=== PATIENT | female | born 1950 | race Caucasian/White ===

== ENCOUNTER 2022-11-05 19:39 | Inpatient (IN) | payer OTHER ==
[~2022-11-05] VITALS: Ht 154.9 cm; Wt 55.3 kg
[2022-11-05 19:49] VITALS: BP_SYST 163; PULSE 66; RESP 19; TEMP 97.2; O2SAT 98
[2022-11-05] MEDS ORDERED: METOCLOPRAMIDE HCL 10 MG/2 ML VIAL IM ONE (20:30)
[2022-11-05] MEDS ORDERED: METF-379 PO (22:00)
[2022-11-05] MEDS ORDERED: PRO20 PO (22:00)
[2022-11-05] MEDS ORDERED: LOSA100T4 PO (22:00)
[2022-11-05] MEDS ORDERED: LIP20 PO (22:00)
[2022-11-05] MEDS ORDERED: ATOR20TA64 PO (22:00)
[2022-11-05 22:29] LABS: BASOPHILS # (AUTO) 0.1 K/uL (0.0-0.2); BASOPHILS % (AUTO) 1.1 % (0.0-2.0); EOSINOPHILS % (AUTO) 0.5 % (0.0-4.0); HEMATOCRIT 31.2 % (36-48); HEMOGLOBIN 10.3 g/dL (12.0-16.0); LYMPHOCYTES # (AUTO) 1.6 K/uL (1.0-5.5); LYMPHOCYTES % (AUTO) 20.3 % (20.5-51.5); MEAN CORPUSCULAR HEMOGLOBIN 28 pg (27-31); MEAN CORPUSCULAR HGB CONC 33 % (32-36); MEAN CORPUSCULAR VOLUME 85 fL (79.0-98.0); MONOCYTES # (AUTO) 0.5 K/uL (0.0-1.0); MONOCYTES % (AUTO) 6.7 % (1.7-9.3); NEUTROPHILS # (AUTO) 5.6 K/uL (1.8-7.7); NEUTROPHILS % (AUTO) 71.4 % (40.0-70.0); PLATELET COUNT (AUTO) 255 K/uL (130-430); RED BLOOD CELL COUNT(AUTO) 3.66 MIL/uL (4.2-6.2); RED CELL DISTRIBUTION WIDTH 14.5 % (9.0-15.0); WHITE BLOOD COUNT (AUTO) 7.8 K/uL (4.8-10.8)
[2022-11-05] MEDS ORDERED: ASPIRIN 325 MG TABLET PO ONE (22:30)
[2022-11-05 22:37] LABS: ANION GAP 8 (5-15); CALCIUM 8.5 mg/dL (8.4-11.0); CHLORIDE 100 mmol/L (98-107); CREATININE 1.21 mg/dL (0.55-1.30); GLUCOSE 313 mg/dL (70-99); UREA NITROGEN, BLOOD 33 mg/dL (8-21)
[2022-11-05 22:41] LABS: ALANINE AMINOTRANSFERASE 9 U/L (12-78); ALBUMIN 3.2 g/dL (3.4-4.8); ASPARTATE AMINOTRANSFERASE 16 U/L (10-37); TOTAL BILIRUBIN 0.3 mg/dL (0.0-1.0)
[2022-11-06 00:28] VITALS: BP_SYST 161; PULSE 57; RESP 16; TEMP 97.8
[2022-11-06 00:51] VITALS: O2SAT 97
[2022-11-06 08:00] VITALS: BP_SYST 148; PULSE 58; RESP 16; TEMP 97.9; O2SAT 95
[2022-11-06 11:32] VITALS: BP_SYST 152; PULSE 52; RESP 17; TEMP 97; O2SAT 94
[2022-11-06] MEDS ORDERED: LORazepam 2 MG/ML VIAL IVP PRN (12:45)
[2022-11-06] MEDS ORDERED: ONDANSETRON HCL 4 MG/2 ML VIAL IVP PRN (12:45)
[2022-11-06] MEDS: D5/0.45 NS 1,000 ML IV SCH ×2 (14:35→22:48)
[2022-11-06] MEDS ORDERED: ASPIRIN 81 MG TABLET(ECOTRIN) PO ONE (16:30)
[2022-11-06 18:11] VITALS: BP_SYST 147; PULSE 59; RESP 16; TEMP 98.4; O2SAT 94
[2022-11-06 20:00] VITALS: BP_SYST 129; PULSE 61; RESP 18; TEMP 97.7; O2SAT 96
[2022-11-06] MEDS: ATORVASTATIN 20 MG TABLET PO SCH (20:59)
[2022-11-07] VITALS (8 sets, daily range): BP systolic 88–178; PULSE 52–62; RESP 16–20; TEMP 97.4–99.3; O2SAT 95–98
[2022-11-07 06:23] LABS: BASOPHILS # (AUTO) 0.1 K/uL (0.0-0.2); BASOPHILS % (AUTO) 0.7 % (0.0-2.0); EOSINOPHILS # (AUTO) 0.5 K/uL (0.0-0.4); EOSINOPHILS % (AUTO) 5.6 % (0.0-4.0); HEMATOCRIT 32.3 % (36-48); HEMOGLOBIN 10.8 g/dL (12.0-16.0); LYMPHOCYTES # (AUTO) 2.3 K/uL (1.0-5.5); MEAN CORPUSCULAR HEMOGLOBIN 28 pg (27-31); MEAN CORPUSCULAR HGB CONC 33 % (32-36); MEAN CORPUSCULAR VOLUME 84 fL (79.0-98.0); MONOCYTES # (AUTO) 0.9 K/uL (0.0-1.0); MONOCYTES % (AUTO) 9.2 % (1.7-9.3); NEUTROPHILS # (AUTO) 5.8 K/uL (1.8-7.7); NEUTROPHILS % (AUTO) 60.5 % (40.0-70.0); PLATELET COUNT (AUTO) 259 K/uL (130-430); RED BLOOD CELL COUNT(AUTO) 3.84 MIL/uL (4.2-6.2); RED CELL DISTRIBUTION WIDTH 14.2 % (9.0-15.0); WHITE BLOOD COUNT (AUTO) 9.6 K/uL (4.8-10.8)
[2022-11-07 06:32] LABS: ANION GAP 6 (5-15); CALCIUM 8.3 mg/dL (8.4-11.0); CHLORIDE 101 mmol/L (98-107); CHOLESTEROL 121 mg/dL (<200); CREATININE 0.94 mg/dL (0.55-1.30); GLUCOSE 178 mg/dL (74-106); HDL CHOLESTEROL 58 mg/dL (>55); PHOSPHORUS 2.7 mg/dL (2.7-4.5); TRIGLYCERIDES 72 mg/dL (30-150); UREA NITROGEN, BLOOD 14 mg/dL (8-21)
[2022-11-07] MEDS: FLUoxetine HCL 20 MG CAPSULE (PROzac) PO SCH (09:03)
[2022-11-07] MEDS: LOSARTAN POTASSIUM 50 MG TABLET (COZAAR) PO SCH (09:04)
[2022-11-07] MEDS: metFORMIN HCL 500 MG TABLET PO SCH ×2 (09:04→18:35)
[2022-11-07] MEDS: ASPIRIN 81 MG TAB.CHEW PO SCH (09:04)
[2022-11-07] MEDS: D5/0.45 NS 1,000 ML IV SCH ×2 (09:08→18:45)
[2022-11-07] MEDS: cloNIDine HCL 0.1 MG TABLET PO PRN (19:58)
[2022-11-07] MEDS: ATORVASTATIN 20 MG TABLET PO SCH (20:59)
[2022-11-08] VITALS (8 sets, daily range): BP systolic 154–191; PULSE 14–54; RESP 14–18; TEMP 96.8–97.6; O2SAT 95–99
[2022-11-08 05:44] LABS: BASOPHILS # (AUTO) 0.1 K/uL (0.0-0.2); BASOPHILS % (AUTO) 0.7 % (0.0-2.0); EOSINOPHILS # (AUTO) 0.6 K/uL (0.0-0.4); EOSINOPHILS % (AUTO) 6.7 % (0.0-4.0); HEMATOCRIT 30.2 % (36-48); HEMOGLOBIN 10.1 g/dL (12.0-16.0); LYMPHOCYTES # (AUTO) 2.5 K/uL (1.0-5.5); LYMPHOCYTES % (AUTO) 30.4 % (20.5-51.5); MEAN CORPUSCULAR HEMOGLOBIN 28 pg (27-31); MEAN CORPUSCULAR HGB CONC 34 % (32-36); MEAN CORPUSCULAR VOLUME 84 fL (79.0-98.0); MONOCYTES # (AUTO) 1.1 K/uL (0.0-1.0); MONOCYTES % (AUTO) 12.7 % (1.7-9.3); NEUTROPHILS # (AUTO) 4.1 K/uL (1.8-7.7); NEUTROPHILS % (AUTO) 49.5 % (40.0-70.0); PLATELET COUNT (AUTO) 230 K/uL (130-430); RED BLOOD CELL COUNT(AUTO) 3.59 MIL/uL (4.2-6.2); RED CELL DISTRIBUTION WIDTH 14.2 % (9.0-15.0); WHITE BLOOD COUNT (AUTO) 8.4 K/uL (4.8-10.8)
[2022-11-08] MEDS: D5/0.45 NS 1,000 ML IV SCH ×2 (06:12→14:50)
[2022-11-08 06:21] LABS: ALANINE AMINOTRANSFERASE 13 U/L (12-78); ALBUMIN 2.6 g/dL (3.4-4.8); ANION GAP 6 (5-15); ASPARTATE AMINOTRANSFERASE 14 U/L (10-37); CALCIUM 8.3 mg/dL (8.4-11.0); CHLORIDE 102 mmol/L (98-107); CREATININE 0.92 mg/dL (0.55-1.30); GLUCOSE 188 mg/dL (74-106); TOTAL BILIRUBIN 0.3 mg/dL (0.0-1.0); UREA NITROGEN, BLOOD 15 mg/dL (8-21)
[2022-11-08] MEDS: metFORMIN HCL 500 MG TABLET PO SCH ×2 (08:46→17:59)
[2022-11-08] MEDS: FLUoxetine HCL 20 MG CAPSULE (PROzac) PO SCH (08:46)
[2022-11-08] MEDS: LOSARTAN POTASSIUM 50 MG TABLET (COZAAR) PO SCH (08:48)
[2022-11-08] MEDS: ASPIRIN 81 MG TAB.CHEW PO SCH (10:54)
[2022-11-08] MEDS: cloNIDine HCL 0.1 MG TABLET PO PRN (15:37)
[2022-11-08] MEDS ORDERED: ASA81 PO (15:57)
[2022-11-08] MEDS ORDERED: hydrALAZINE HCL 20 MG/ML VIAL IVP PRN (17:30)
[2022-11-08] MEDS ORDERED: amLODIPine BESYLATE 10 MG TABLET PO ONE (17:45)
[2022-11-08] MEDS: ATORVASTATIN 20 MG TABLET PO SCH (20:55)
[2022-11-08] MEDS: lisinopriL 20 MG TABLET PO SCH (20:56)
[2022-11-08] MEDS: NORMAL SALINE 5 ML DISP.SYRIN IVF SCH (22:13)
[2022-11-09 00:41] VITALS: BP_SYST 136; PULSE 49; RESP 18; TEMP 96.4; O2SAT 98
[2022-11-09] MEDS: NORMAL SALINE 5 ML DISP.SYRIN IVF SCH ×3 (05:34→20:53)
[2022-11-09 07:40] LABS: ANION GAP 6 (5-15); CALCIUM 8.6 mg/dL (8.4-11.0); CHLORIDE 101 mmol/L (98-107); CREATININE 0.94 mg/dL (0.55-1.30); FREE T4 (FREE THYROXINE) 1.2 ng/dL (0.6-1.6); GLUCOSE 134 mg/dL (74-106); THYROID STIMULATING HORMONE 0.92 uIu/mL (0.34-4.82); UREA NITROGEN, BLOOD 18 mg/dL (8-21)
[2022-11-09 07:48] LABS: BASOPHILS # (AUTO) 0.1 K/uL (0.0-0.2); BASOPHILS % (AUTO) 0.6 % (0.0-2.0); EOSINOPHILS # (AUTO) 0.6 K/uL (0.0-0.4); EOSINOPHILS % (AUTO) 6.4 % (0.0-4.0); HEMATOCRIT 30.4 % (36-48); LYMPHOCYTES # (AUTO) 2.9 K/uL (1.0-5.5); LYMPHOCYTES % (AUTO) 30.6 % (20.5-51.5); MEAN CORPUSCULAR HEMOGLOBIN 28 pg (27-31); MEAN CORPUSCULAR HGB CONC 33 % (32-36); MEAN CORPUSCULAR VOLUME 84 fL (79.0-98.0); MONOCYTES % (AUTO) 10.7 % (1.7-9.3); NEUTROPHILS # (AUTO) 4.9 K/uL (1.8-7.7); NEUTROPHILS % (AUTO) 51.7 % (40.0-70.0); PLATELET COUNT (AUTO) 177 K/uL (130-430); RED BLOOD CELL COUNT(AUTO) 3.61 MIL/uL (4.2-6.2); WHITE BLOOD COUNT (AUTO) 9.5 K/uL (4.8-10.8)
[2022-11-09 08:52] VITALS: BP_SYST 133; PULSE 50; RESP 18; TEMP 97.1; O2SAT 96
[2022-11-09] MEDS: metFORMIN HCL 500 MG TABLET PO SCH ×2 (09:27→18:24)
[2022-11-09] MEDS: FLUoxetine HCL 20 MG CAPSULE (PROzac) PO SCH (09:28)
[2022-11-09] MEDS: ASPIRIN 81 MG TAB.CHEW PO SCH (09:28)
[2022-11-09] MEDS: amLODIPine BESYLATE 10 MG TABLET PO SCH (09:28)
[2022-11-09] MEDS: LOSARTAN POTASSIUM 50 MG TABLET (COZAAR) PO SCH (09:28)
[2022-11-09] MEDS: lisinopriL 20 MG TABLET PO SCH ×2 (09:29→20:53)
[2022-11-09 12:51] VITALS: BP_SYST 144; PULSE 54; RESP 16; TEMP 97.2; O2SAT 96
[2022-11-09 17:38] VITALS: BP_SYST 141; PULSE 52; RESP 16; TEMP 97.2; O2SAT 97
[2022-11-09 20:30] VITALS: BP_SYST 144; PULSE 64; RESP 18; TEMP 98.6; O2SAT 95
[2022-11-09] MEDS: ATORVASTATIN 20 MG TABLET PO SCH (20:53)
[2022-11-09 22:00] VITALS: O2SAT 95
[2022-11-10] VITALS (7 sets, daily range): BP systolic 135–150; PULSE 51–59; RESP 17–18; TEMP 97–98.8; O2SAT 91–100
[2022-11-10] MEDS: NORMAL SALINE 5 ML DISP.SYRIN IVF SCH ×2 (05:12→16:23)
[2022-11-10 06:29] LABS: BASOPHILS # (AUTO) 0.1 K/uL (0.0-0.2); EOSINOPHILS # (AUTO) 0.6 K/uL (0.0-0.4); EOSINOPHILS % (AUTO) 5.5 % (0.0-4.0); HEMATOCRIT 33.5 % (36-48); LYMPHOCYTES # (AUTO) 2.4 K/uL (1.0-5.5); LYMPHOCYTES % (AUTO) 23.8 % (20.5-51.5); MEAN CORPUSCULAR HEMOGLOBIN 28 pg (27-31); MEAN CORPUSCULAR HGB CONC 33 % (32-36); MEAN CORPUSCULAR VOLUME 84 fL (79.0-98.0); MONOCYTES % (AUTO) 9.7 % (1.7-9.3); NEUTROPHILS # (AUTO) 6.1 K/uL (1.8-7.7); PLATELET COUNT (AUTO) 260 K/uL (130-430); RED BLOOD CELL COUNT(AUTO) 3.99 MIL/uL (4.2-6.2); RED CELL DISTRIBUTION WIDTH 14.2 % (9.0-15.0); WHITE BLOOD COUNT (AUTO) 10.2 K/uL (4.8-10.8)
[2022-11-10 06:48] LABS: ALANINE AMINOTRANSFERASE 0 U/L (12-78); ALBUMIN 2.9 g/dL (3.4-4.8); ANION GAP 7 (5-15); ASPARTATE AMINOTRANSFERASE 16 U/L (10-37); CALCIUM 8.9 mg/dL (8.4-11.0); CHLORIDE 101 mmol/L (98-107); CREATININE 0.92 mg/dL (0.55-1.30); GLUCOSE 116 mg/dL (74-106); PHOSPHORUS 3.6 mg/dL (2.7-4.5); TOTAL BILIRUBIN 0.3 mg/dL (0.0-1.0); UREA NITROGEN, BLOOD 19 mg/dL (8-21)
[2022-11-10] MEDS: LOSARTAN POTASSIUM 50 MG TABLET (COZAAR) PO SCH (09:54)
[2022-11-10] MEDS: ASPIRIN 81 MG TAB.CHEW PO SCH (09:54)
[2022-11-10] MEDS: FLUoxetine HCL 20 MG CAPSULE (PROzac) PO SCH (09:55)
[2022-11-10] MEDS: metFORMIN HCL 500 MG TABLET PO SCH ×2 (09:55→17:30)
[2022-11-10] MEDS: lisinopriL 20 MG TABLET PO SCH (09:56)
[2022-11-10] MEDS: amLODIPine BESYLATE 10 MG TABLET PO SCH (09:56)
[2022-11-10] MEDS ORDERED: hydrALAZINE HCL 25 MG TABLET PO ONE (12:30)
[2022-11-10] MEDS ORDERED: hydrALAZINE HCL 25 MG TABLET PO SCH (21:00)
[2022-11-10] MEDS ORDERED: ATORVASTATIN 20 MG TABLET PO SCH (21:00)
== END 2022-11-10 17:45 | disposition home or self-care (01) | DRG 65 ==
LOC: SED 19:39 → STU 22:27
PROVIDERS: ADMIT Specialist; ATTEND Specialist
DX: I63.9 Cerebral infarction, unspecified (principal); E87.1 Hypo-osmolality and hyponatremia; G81.94 Hemiplegia, unspecified affecting left nondominant side; I10 Essential (primary) hypertension; E78.5 Hyperlipidemia, unspecified; D64.9 Anemia, unspecified; R79.89 Other specified abnormal findings of blood chemistry; E83.51 Hypocalcemia; E88.09 Other disorders of plasma-protein metabolism, not elsewhere classified; R00.1 Bradycardia, unspecified; E11.65 Type 2 diabetes mellitus with hyperglycemia; R53.81 Other malaise; Z86.73 Personal history of transient ischemic attack (TIA), and cerebral infarction without residual deficits; Z51.89 Encounter for other specified aftercare
CPT/HCPCS: 36415; 70450-TC; 70551; 76376; 80048; 80053; 80061; 83735; 84100; 84439; 84443; 85025; 92610-GN; 93005; 93306; 93880; 96372; 97110-GP; 97116-GP; 97530-GP; 99285; G0378; J2765